=== PATIENT | female | born 1950 | race Caucasian/White ===

== ENCOUNTER 2018-03-04 12:32 | Emergency (ER) | payer OTHER ==
[~2018-03-04] VITALS: Ht 170.2 cm; Wt 74.8 kg
[~2018-03-04 12:32] MED LIST: ADDERALL XR 3030 MG PO; BACTRIM DS TAB1 EACH PO; FLUOXETINE HCL40 MG PO; IBUPROFEN 600600 M1 PO; KEFLEX500 MG PO; NORCO 5-325 TA1 EACH PO; PREDNISONE 20 M20 MG PO
[2018-03-04 14:31] VITALS: BP 120/79
== END 2018-03-04 14:31 | disposition home or self-care (01) ==
LOC: ER 12:32
DX: S61.011A Laceration without foreign body of right thumb without damage to nail, initial encounter (principal); K50.90 Crohn's disease, unspecified, without complications; F17.210 Nicotine dependence, cigarettes, uncomplicated; W26.0XXA Contact with knife, initial encounter; Y93.89 Activity, other specified; Y92.89 Other specified places as the place of occurrence of the external cause; Y99.8 Other external cause status